=== PATIENT | female | born 1995 | race Caucasian/White ===

== ENCOUNTER 2016-09-27 18:29 | Emergency (ER) | payer MEDICARE ==
[~2016-09-27] VITALS: Ht 162.5 cm; Wt 113.4 kg
[~2016-09-27 18:29] MED LIST: A-CILLIN500 MG PO; AMOXICILLIN500 M2 PO; AMOXICILLIN500 MG PO; AMOXIL500 M1 PO; AMPICILLIN500 MG PO; AUGMENTIN 875 M1 TAB PO; AUGMENTIN 875-875 MG PO; BACTRIM DS 8001 TA1 PO; BROMPHENIRAMIN473 M4 PO; CATAFLAM50 MG PO; CIPRODEX 0.3%-7.5 ML OT; CIPROFLOXACIN500 MG PO; CLARITIN10 MG PO; FLONASE 0.05% 121 EA NAS; HYDROCODONE BIT1 T11 PO; KEFLEX500 MG PO; MACROBID100 M1 PO; MOTRIN800 MG PO; NAPROSYN500 MG PO; NKHM PO; NO DAILY MEDS; PHENERGAN12.5 M1 PO; TESSALON PERLE200 MG PO; TYLENOL W/CODEI1 TA2 PO; ZOFRAN ODT4 MG SL; ZYRTEC10 MG PO
[2016-09-27] MEDS ORDERED: OMNICEF300 MG PO (20:02)
[2016-09-27] MEDS ORDERED: Motrin,Rufen800 MG PO (20:02)
[2016-09-27] MEDS ORDERED: ZYRTEC10 MG PO (20:02)
== END 2016-09-27 20:09 | disposition home or self-care (01) ==
LOC: ED 18:29
DX: H92.03 Otalgia, bilateral (principal); M54.6 Pain in thoracic spine

== ENCOUNTER 2016-10-03 16:03 | Emergency (ER) | payer MEDICARE ==
[~2016-10-03] VITALS: Ht 162.5 cm; Wt 113.4 kg
[~2016-10-03 16:03] MED LIST changes: +Motrin,Rufen800 MG PO; +OMNICEF300 MG PO
[2016-10-03] MEDS ORDERED: ZYRTEC10 MG PO (16:42)
== END 2016-10-03 16:44 | disposition home or self-care (01) ==
LOC: ED 16:03
DX: J02.9 Acute pharyngitis, unspecified (principal)

== ENCOUNTER 2016-12-05 20:10 | Emergency (ER) | payer MEDICARE ==
[~2016-12-05] VITALS: Ht 162.5 cm; Wt 113.4 kg
[2016-12-05] MEDS ORDERED: NAPROSYN500 MG PO (21:14)
== END 2016-12-05 21:16 | disposition home or self-care (01) ==
LOC: ED 20:10
DX: M72.2 Plantar fascial fibromatosis (principal)

== ENCOUNTER 2017-01-18 17:19 | Emergency (ER) | payer MEDICARE ==
[~2017-01-18] VITALS: Ht 162.5 cm; Wt 117.5 kg
[2017-01-18 17:58] LABS: BILIRUBIN NEGATIVE (NEGATIVE); BLOOD NEGATIVE (NEGATIVE); CLARITY SL CLOUDY (CLEAR); COLOR YELLOW (YELLOW); GLUCOSE NEGATIVE (NEGATIVE); KETONE NEGATIVE (NEGATIVE); LEUKO ESTERASE NEGATIVE (NEGATIVE); NITRITE NEGATIVE (NEGATIVE); PH 7.5 (5.0-9.0); PROTEIN NEGATIVE (NEGATIVE); SPECIFIC GRAVITY 1.015 (1.005-1.030); UROBILINOGEN 0.2 E.U./dl (0.2-1.0)
[2017-01-18 18:05] LABS: BACTERIA 4+; URINE REFLEX COMMENT YES (NO)
[2017-01-18 18:15] LABS: BASO % 0.4 % (0.0-1.0); EOS # 0.1 10*3/uL (0.0-0.4); EOS % 1.6 % (1.0-4.0); HEMATOCRIT 37.8 % (37.0-47.0); LYMPH # 2.6 10*3/uL (1.3-4.4); LYMPH % 32.3 % (27.0-41.0); MEAN CELL VOLUME 79.9 fl (81.0-99.0); MEAN CORPUSCULAR HGB 25.4 pg (27.0-31.0); MEAN CORPUSCULAR HGB CONC 31.7 g/dl (33.0-37.0); MEAN PLATELET VOLUME 10.7 fl (9.6-12.3); MONO # 0.4 10*3/uL (0.1-1.0); MONO % 4.8 % (3.0-9.0); NEUT # 4.8 10*3/uL (2.3-7.9); NEUT % 60.5 % (47.0-73.0); PLATELET COUNT AUTOMATED 327 10*3/uL (130-400); RED BLOOD COUNT 4.73 10*6/uL (4.10-5.10); RED CELL DISTRI WIDTH 15.8 % (0-14.5); WHITE BLOOD COUNT 7.9 10*3/uL (4.8-10.8)
[2017-01-18 18:30] LABS: ALKALINE PHOSPHATASE 70 U/L (45-117); BILIRUBIN, TOTAL 0.3 mg/dl (0.2-1.0); BUN 13 mg/dl (7-24); CARBON DIOXIDE 28 mmol/L (21-32); CHLORIDE 105 mmol/L (98-107); EST GLOM FILT AFRICAN AMERICAN > 60 ml/min; GLUCOSE 124 mg/dL (65-99); SGOT/AST 13 IU/L (3-35); SGPT/ALT 26 U/L (12-78); SODIUM 140 mmol/L (136-145); TOTAL PROTEIN 7.4 gm/dL (6.4-8.2)
[2017-01-18] MEDS ORDERED: ZOFRAN ODT4 MG SL (18:57)
[2017-01-18] MEDS ORDERED: PEPCID20 MG PO (19:11)
== END 2017-01-18 19:59 | disposition home or self-care (01) ==
LOC: ED 17:19
PROVIDERS: Physician Assistant
DX: R11.2 Nausea with vomiting, unspecified (principal); R35.0 Frequency of micturition; R10.13 Epigastric pain

== ENCOUNTER 2017-01-31 19:20 | Emergency (ER) | payer MEDICARE ==
[~2017-01-31] VITALS: Ht 162.5 cm; Wt 113.4 kg
[~2017-01-31 19:20] MED LIST changes: +PEPCID20 MG PO
== END 2017-01-31 21:14 | disposition home or self-care (01) ==
LOC: ED 19:20
DX: S90.31XA Contusion of right foot, initial encounter (principal); K21.9 Gastro-esophageal reflux disease without esophagitis; V89.9XXA Person injured in unspecified vehicle accident, initial encounter; Y93.39 Activity, other involving climbing, rappelling and jumping off; Y92.810 Car as the place of occurrence of the external cause; Y99.8 Other external cause status

== ENCOUNTER 2017-06-04 12:08 | Emergency (ER) | payer MEDICARE ==
[~2017-06-04] VITALS: Ht 162.5 cm; Wt 136.1 kg
[2017-06-04] MEDS ORDERED: AUGMENTIN 875875 MG PO (12:23)
== END 2017-06-04 12:24 | disposition home or self-care (01) ==
LOC: ED 12:08
DX: H66.91 Otitis media, unspecified, right ear (principal); K21.9 Gastro-esophageal reflux disease without esophagitis; G89.29 Other chronic pain; F10.10 Alcohol abuse, uncomplicated

== ENCOUNTER 2017-06-10 02:08 | Emergency (ER) | payer MEDICARE ==
[~2017-06-10] VITALS: Wt 113.4 kg
[~2017-06-10 02:08] MED LIST changes: +AUGMENTIN 875875 MG PO
[2017-06-10] MEDS ORDERED: CORTISPORIN SUS10 ML OT (02:29)
[2017-06-10] MEDS ORDERED: CIPRO250 MG PO (02:29)
[2017-06-10] MEDS ORDERED: Motrin,Rufen800 MG PO (02:29)
== END 2017-06-10 02:35 | disposition home or self-care (01) ==
LOC: ED 02:08
DX: H60.501 Unspecified acute noninfective otitis externa, right ear (principal); K21.9 Gastro-esophageal reflux disease without esophagitis

== ENCOUNTER 2017-09-02 20:13 | Emergency (ER) | payer MEDICARE ==
[~2017-09-02] VITALS: Ht 162.5 cm; Wt 113.4 kg
[~2017-09-02 20:13] MED LIST changes: +CIPRO250 MG PO; +CORTISPORIN SUS10 ML OT
[2017-09-02 20:41] LABS: BILIRUBIN NEGATIVE (NEGATIVE); BLOOD 2+ (NEGATIVE); CLARITY TURBID (CLEAR); COLOR YELLOW (YELLOW); GLUCOSE NEGATIVE (NEGATIVE); KETONE NEGATIVE (NEGATIVE); LEUKO ESTERASE 3+ (NEGATIVE); NITRITE NEGATIVE (NEGATIVE)
[2017-09-02 20:48] LABS: BACTERIA 2+; EPITHELIAL CELLS 0-2; MUCOUS TRACE; RBC TNTC rbc/hpf (0-2); WBC TNTC wbc/hpf (0-5)
[2017-09-02 21:23] LABS: BASO % 0.3 % (0.0-1.0); EOS # 0.3 10*3/uL (0.0-0.4); EOS % 2.7 % (1.0-4.0); HEMATOCRIT 36.1 % (37.0-47.0); HEMOGLOBIN 11.5 g/dl (12.0-16.0); LYMPH # 1.8 10*3/uL (1.3-4.4); LYMPH % 17.6 % (27.0-41.0); MEAN CELL VOLUME 81.5 fl (81.0-99.0); MEAN CORPUSCULAR HGB CONC 31.9 g/dl (33.0-37.0); MEAN PLATELET VOLUME 10.8 fl (9.6-12.3); MONO # 0.7 10*3/uL (0.1-1.0); MONO % 7.3 % (3.0-9.0); NEUT # 7.3 10*3/uL (2.3-7.9); NEUT % 71.8 % (47.0-73.0); PLATELET COUNT AUTOMATED 283 10*3/uL (130-400); RED BLOOD COUNT 4.43 10*6/uL (4.10-5.10); RED CELL DISTRI WIDTH 15.6 % (0-14.5); WHITE BLOOD COUNT 10.1 10*3/uL (4.8-10.8)
[2017-09-02 21:51] LABS: ALBUMIN 3.1 gm/dl (3.1-4.5); ALKALINE PHOSPHATASE 79 U/L (45-117); BUN 15 mg/dl (7-24); CHLORIDE 104 mmol/L (98-107); CREATININE 0.82 mg/dL (0.55-1.02); POTASSIUM 3.6 mmol/L (3.5-5.1); SGOT/AST 13 IU/L (3-35); SGPT/ALT 29 U/L (12-78); SODIUM 139 mmol/L (136-145); TOTAL PROTEIN 7.5 gm/dL (6.4-8.2)
[2017-09-02 21:53] LABS: B-hCG (QUALITATIVE) NEGATIVE (NEGATIVE)
[2017-09-02] MEDS ORDERED: Motrin,Rufen800 MG PO (21:57)
[2017-09-02] MEDS ORDERED: CEFUROXIME AXE250 MG PO (21:57)
[2017-09-02] MEDS ORDERED: PYRIDIUM200 M1 PO (21:57)
== END 2017-09-02 22:09 | disposition home or self-care (01) ==
LOC: ED 20:13
PROVIDERS: Emergency Medicine Emergency Medical Services
DX: N39.0 Urinary tract infection, site not specified (principal); R31.9 Hematuria, unspecified; K21.9 Gastro-esophageal reflux disease without esophagitis; F17.200 Nicotine dependence, unspecified, uncomplicated; Z79.899 Other long term (current) drug therapy

== ENCOUNTER 2018-02-27 10:28 | Emergency (ER) | payer MEDICARE ==
[~2018-02-27] VITALS: Ht 162.5 cm; Wt 117.9 kg
[~2018-02-27 10:28] MED LIST changes: +BENADRYL25 M2 PO; +CEFUROXIME AXE250 MG PO; +CYCLOBENZAPRINE5 M3 PO; +PREDNISONE20 M1 PO; +PYRIDIUM200 M1 PO
[2018-02-27] MEDS ORDERED: AMOXICILLIN500 M2 PO (11:06)
== END 2018-02-27 11:16 | disposition home or self-care (01) ==
LOC: ED 10:28
DX: J02.9 Acute pharyngitis, unspecified (principal); R59.9 Enlarged lymph nodes, unspecified

== ENCOUNTER 2018-07-23 18:58 | Emergency (ER) | payer MEDICARE ==
[~2018-07-23] VITALS: Ht 162.5 cm; Wt 104.3 kg
[2018-07-23] MEDS ORDERED: CLARITIN10 MG PO (19:02)
[2018-07-23] MEDS ORDERED: PREDNISONE10 MG PO (19:02)
[2018-07-23] MEDS ORDERED: FLONASE ALLERG9.9 ML NAS (19:02)
== END 2018-07-23 20:19 | disposition home or self-care (01) ==
LOC: ED 18:58
DX: B34.9 Viral infection, unspecified (principal); K21.9 Gastro-esophageal reflux disease without esophagitis

== ENCOUNTER 2018-11-17 14:55 | Emergency (ER) | payer MEDICARE ==
[~2018-11-17] VITALS: Ht 165.1 cm; Wt 113.4 kg
[~2018-11-17 14:55] MED LIST changes: +FLONASE ALLERG9.9 ML NAS; +PREDNISONE10 MG PO; +ZOFRAN4 MG PO
[2018-11-17] MEDS ORDERED: KENALOG 0.1%80 GM T (15:35)
[2018-11-17] MEDS ORDERED: PREDNISONE10 MG PO (15:35)
== END 2018-11-17 15:42 | disposition home or self-care (01) ==
LOC: ED 14:55
DX: L25.5 Unspecified contact dermatitis due to plants, except food (principal); K21.9 Gastro-esophageal reflux disease without esophagitis

== ENCOUNTER 2019-07-20 13:42 | Emergency (ER) | payer MEDICARE ==
[~2019-07-20] VITALS: Ht 162.5 cm; Wt 113.4 kg
[~2019-07-20 13:42] MED LIST changes: +KENALOG 0.1%80 GM T
[2019-07-20 14:48] LABS: BASO % 0.3 % (0.0-1.0); EOS # 0.2 10*3/uL (0.0-0.4); EOS % 1.6 % (1.0-4.0); HEMATOCRIT 38.8 % (37.0-47.0); HEMOGLOBIN 12.3 g/dl (12.0-16.0); LYMPH # 2.5 10*3/uL (1.3-4.4); LYMPH % 27.4 % (27.0-41.0); MEAN CELL VOLUME 84.3 fl (81.0-99.0); MEAN CORPUSCULAR HGB 26.7 pg (27.0-31.0); MEAN CORPUSCULAR HGB CONC 31.7 g/dl (33.0-37.0); MONO # 0.6 10*3/uL (0.1-1.0); MONO % 6.4 % (3.0-9.0); NEUT # 5.9 10*3/uL (2.3-7.9); NEUT % 64.1 % (47.0-73.0); PLATELET COUNT AUTOMATED 287 10*3/uL (130-400); RED CELL DISTRI WIDTH 14.7 % (0-14.5); WHITE BLOOD COUNT 9.2 10*3/uL (4.8-10.8)
[2019-07-20 15:05] LABS: ALBUMIN 3.1 gm/dl (3.1-4.5); ALKALINE PHOSPHATASE 70 U/L (45-117); BUN 10 mg/dl (7-24); CHLORIDE 109 mmol/L (98-107); CREATININE 0.76 mg/dL (0.55-1.02); LIPASE 82 U/L (73-393); POTASSIUM 3.7 mmol/L (3.5-5.1); SGOT/AST 12 IU/L (3-35); SGPT/ALT 31 U/L (12-78); SODIUM 141 mmol/L (136-145)
[2019-07-20] MEDS ORDERED: ZYRTEC10 M2 PO (16:04)
[2019-07-20] MEDS ORDERED: PEPCID20 MG PO (16:04)
== END 2019-07-20 16:30 | disposition home or self-care (01) ==
LOC: ED 13:42
PROVIDERS: Physician Assistant
DX: R05 Cough (principal); R10.13 Epigastric pain; R07.9 Chest pain, unspecified; R11.10 Vomiting, unspecified

== ENCOUNTER 2019-08-31 21:13 | Emergency (ER) | payer OTHER ==
[~2019-08-31] VITALS: Ht 162.5 cm; Wt 117.9 kg
[~2019-08-31 21:13] MED LIST changes: +ZYRTEC10 M2 PO
== END 2019-08-31 22:37 | disposition left against medical advice (07) ==
LOC: ED 21:13
DX: M54.5 Low back pain (principal); M25.562 Pain in left knee; Z79.2 Long term (current) use of antibiotics; W01.0XXA Fall on same level from slipping, tripping and stumbling without subsequent striking against object, initial encounter; Y93.89 Activity, other specified; Y92.89 Other specified places as the place of occurrence of the external cause; Y99.8 Other external cause status

== ENCOUNTER 2019-12-24 00:25 | Emergency (ER) | payer MEDICARE ==
[~2019-12-24] VITALS: Wt 117.9 kg
[2019-12-24 01:35] LABS: BASO % 0.1 % (0.0-1.0); EOS # 0.1 10*3/uL (0.0-0.4); EOS % 0.3 % (1.0-4.0); HEMATOCRIT 37.4 % (37.0-47.0); LYMPH # 1.3 10*3/uL (1.3-4.4); LYMPH % 8.9 % (27.0-41.0); MEAN CELL VOLUME 82.4 fl (81.0-99.0); MEAN CORPUSCULAR HGB 26.4 pg (27.0-31.0); MEAN CORPUSCULAR HGB CONC 32.1 g/dl (33.0-37.0); MEAN PLATELET VOLUME 10.7 fl (9.6-12.3); MONO # 0.7 10*3/uL (0.1-1.0); NEUT # 12.4 10*3/uL (2.3-7.9); NEUT % 85.4 % (47.0-73.0); PLATELET COUNT AUTOMATED 313 10*3/uL (130-400); RED BLOOD COUNT 4.54 10*6/uL (4.10-5.10); RED CELL DISTRI WIDTH 15.1 % (0-14.5); WHITE BLOOD COUNT 14.6 10*3/uL (4.8-10.8)
[2019-12-24 01:37] LABS: BILIRUBIN NEGATIVE (NEGATIVE); BLOOD 3+ (NEGATIVE); CLARITY SL CLOUDY (CLEAR); COLOR YELLOW (YELLOW); GLUCOSE NEGATIVE (NEGATIVE); KETONE NEGATIVE (NEGATIVE); NITRITE NEGATIVE (NEGATIVE); SPECIFIC GRAVITY 1.015 (1.005-1.030); UROBILINOGEN 0.2 E.U./dl (0.2-1.0)
[2019-12-24 01:38] LABS: LEUKO ESTERASE 2+ (NEGATIVE)
[2019-12-24 01:42] LABS: BACTERIA 4+; EPITHELIAL CELLS 21-30; RBC 21-30 rbc/hpf (0-2); WBC TNTC wbc/hpf (0-5)
[2019-12-24 01:49] LABS: ALBUMIN 3.3 gm/dl (3.1-4.5); ALKALINE PHOSPHATASE 63 U/L (45-117); CHLORIDE 108 mmol/L (98-107); CREATININE 1.03 mg/dL (0.55-1.02); LIPASE 90 U/L (73-393); SGOT/AST 14 IU/L (3-35); SGPT/ALT 22 U/L (12-78); SODIUM 139 mmol/L (136-145); TOTAL PROTEIN 7.3 gm/dL (6.4-8.2)
[2019-12-24 01:51] LABS: BUN 15 mg/dl (7-24)
== END 2019-12-24 07:30 | disposition short-term general hospital (02) ==
LOC: ED 00:25
PROVIDERS: Emergency Medicine
DX: N13.2 Hydronephrosis with renal and ureteral calculous obstruction (principal); N39.0 Urinary tract infection, site not specified; K21.9 Gastro-esophageal reflux disease without esophagitis

== ENCOUNTER → 2021-03-25 | Outpatient (CLI) | payer MEDICARE | END | disposition home or self-care (01) | LOC: US 11:00 | PROVIDERS: ATTEND Nurse Practitioner Primary Care | DX: K80.70 Calculus of gallbladder and bile duct without cholecystitis without obstruction (principal); R10.13 Epigastric pain; M54.9 Dorsalgia, unspecified; Z87.442 Personal history of urinary calculi ==

== ENCOUNTER → 2021-04-22 | Day surgery (SDC) | payer MEDICARE ==
[2021-04-19 13:03] VITALS: BP 107/64
[~2021-04-22] VITALS: Ht 165.1 cm; Wt 122.5 kg
[~2021-04-22] MED LIST changes: +COLACE100 MG PO; +PERCOCET 5-3251 EACH PO
[2021-04-22 08:03] VITALS: BP 101/48
[2021-04-22 10:44] VITALS: BP 134/66
[2021-04-22 10:59] VITALS: BP 116/58
[2021-04-22 11:14] VITALS: BP 128/64
[2021-04-22 11:29] VITALS: BP 109/43
[2021-04-22 11:44] VITALS: BP 116/51
== END | disposition home or self-care (01) ==
LOC: SDC 04-19 13:15
PROVIDERS: ATTEND Surgery
DX: K80.10 Calculus of gallbladder with chronic cholecystitis without obstruction (principal); K21.9 Gastro-esophageal reflux disease without esophagitis; F41.9 Anxiety disorder, unspecified; F32.9 Major depressive disorder, single episode, unspecified; Z79.899 Other long term (current) drug therapy; Z20.822 Contact with and (suspected) exposure to COVID-19; Z98.890 Other specified postprocedural states

== ENCOUNTER 2021-08-30 09:54 | Emergency (ER) | payer MEDICARE ==
[~2021-08-30] VITALS: Ht 162.5 cm; Wt 120.2 kg
[2021-08-30 10:25] LABS: BILIRUBIN Negative (Negative); BLOOD Negative (Negative); CLARITY Clear (Clear); COLOR Yellow (Yellow); GLUCOSE Negative (Negative); KETONE Negative (Negative); LEUKO ESTERASE 1+ (Negative); NITRITE Negative (Negative); SPECIFIC GRAVITY 1.015 (1.001-1.030)
[2021-08-30 10:42] LABS: BASO % 0.3 % (0.0-1.0); EOS # 0.1 10*3/uL (0.0-0.4); EOS % 1.1 % (1.0-4.0); HEMATOCRIT 37.9 % (37.0-47.0); LYMPH # 2.2 10*3/uL (1.3-4.4); LYMPH % 31.9 % (27.0-41.0); MEAN CELL VOLUME 85.7 fl (81.0-99.0); MEAN CORPUSCULAR HGB 28.5 pg (27.0-31.0); MEAN CORPUSCULAR HGB CONC 33.2 g/dl (33.0-37.0); MONO # 0.4 10*3/uL (0.1-1.0); MONO % 6.2 % (3.0-9.0); NEUT # 4.2 10*3/uL (2.3-7.9); NEUT % 60.2 % (47.0-73.0); PLATELET COUNT AUTOMATED 300 10*3/uL (130-400); RED BLOOD COUNT 4.42 10*6/uL (4.10-5.10); RED CELL DISTRI WIDTH 14.4 % (0-14.5)
[2021-08-30 10:56] LABS: PH 8.5 (4.5-8.0)
[2021-08-30 11:02] LABS: RBC 0-2 rbc/hpf (0-2)
[2021-08-30 11:05] LABS: ALKALINE PHOSPHATASE 51 U/L (45-117); BUN 10 mg/dl (7-24); CHLORIDE 107 mmol/L (98-107); CREATININE 0.69 mg/dL (0.55-1.02); POTASSIUM 3.7 mmol/L (3.5-5.1); SGOT/AST 10 IU/L (3-35); SGPT/ALT 25 U/L (12-78); SODIUM 137 mmol/L (136-145); TOTAL PROTEIN 7.4 gm/dL (6.4-8.2)
== END 2021-08-30 12:13 | disposition home or self-care (01) ==
LOC: ED 09:54
PROVIDERS: Emergency Medicine
DX: O26.891 Other specified pregnancy related conditions, first trimester (principal); Z3A.01 Less than 8 weeks gestation of pregnancy

== ENCOUNTER → 2021-10-01 | Outpatient (CLI) | payer MEDICARE | END | disposition home or self-care (01) | LOC: US 14:56 | PROVIDERS: ATTEND Nurse Practitioner Women's Health | DX: Z34.81 Encounter for supervision of other normal pregnancy, first trimester (principal); Z3A.10 10 weeks gestation of pregnancy ==

== ENCOUNTER → 2023-10-16 | Day surgery (SDC) | payer MEDICARE, MEDICAID ==
[2023-10-12 13:56] VITALS: BP 110/68
[~2023-10-16] VITALS: Ht 161.2 cm; Wt 121.1 kg
[~2023-10-16] MED LIST changes: +Dexamethasone Sodium Phospha 20 MG/5 ML VIAL IV ONE; +GLYCOPYRROLATE 0.4 MG/2 ML VIAL IV ONE; +Ketorolac Tromethamine 30 MG/ML VIAL IV ONE; +Lactated Ringer's Solution 1,000 ML IV ONE; +Lactated Ringer's Solution 1,000 ML IV SCH; +Lidocaine Hydrochloride 2% 10 ML AMP IV ONE; +Midazolam Hydrochloride 2 MG/2 ML VIAL IV STA; +Neostigmine Methylsulfate 3 MG/3 ML SYRINGE IV ONE; +Ondansetron Hydrochloride 4 MG/2 ML VIAL IV ONE; +PROPOFOL 200 MG/20 ML VIAL IV ONE; +ROCURONIUM BROMIDE 50 MG/5 ML SYRINGE IV ONE; +SEVOFLURANE 250 ML BOT INH ONE
[2023-10-16 07:12] VITALS: BP 97/50
[2023-10-16 08:42] VITALS: BP 128/62
[2023-10-16 08:57] VITALS: BP 103/44
[2023-10-16 09:12] VITALS: BP 103/49
[2023-10-16 09:27] VITALS: BP 121/67
[2023-10-16 09:42] VITALS: BP 123/66
== END | disposition home or self-care (01) ==
LOC: SDC 10-12 13:15
PROVIDERS: ATTEND Obstetrics & Gynecology
DX: Z30.2 Encounter for sterilization (principal); F41.9 Anxiety disorder, unspecified; F31.9 Bipolar disorder, unspecified; K21.9 Gastro-esophageal reflux disease without esophagitis; F43.10 Post-traumatic stress disorder, unspecified; Z98.891 History of uterine scar from previous surgery; Z98.890 Other specified postprocedural states